=== PATIENT | female | born 1970 | race Hispanic/Latino ===

== ENCOUNTER 2021-07-15 13:57 | Emergency (ER) | payer BC ==
[~2021-07-15] VITALS: Ht 154.9 cm; Wt 76.7 kg
[~2021-07-15 13:57] MED LIST: LEVOTHYROXINE75 MCG PO
[2021-07-15] MEDS ORDERED: ONDANSETRON HCL INJ 2MG/ML 2ML 2 MG/ML VIAL IV STA (15:49)
[2021-07-15] MEDS ORDERED: FAMOTIDINE 20 MG/2 ML VIAL IV STA (15:49)
[2021-07-15] MEDS ORDERED: SODIUM CHLORIDE 0.9% 1000ML 1,000 ML IV SCH (16:00)
[2021-07-15] MEDS ORDERED: SODIUM CHLORIDE 0.9% 1000ML 1,000 ML ONE (16:06)
[2021-07-15] MEDS ORDERED: ONDANSETRON HCL INJ 2MG/ML 2ML 2 MG/ML VIAL ONE (16:06)
[2021-07-15] MEDS ORDERED: FAMOTIDINE 20 MG/2 ML VIAL IV ONE (16:07)
[2021-07-15] MEDS ORDERED: ZOFRAN4 MG PO (17:42)
== END 2021-07-15 17:54 | disposition home or self-care (01) ==
LOC: FSED 14:26
DX: B34.9 Viral infection, unspecified (principal); R11.2 Nausea with vomiting, unspecified; R05 Cough; E86.0 Dehydration; R51.9 Headache, unspecified; R53.83 Other fatigue; R91.8 Other nonspecific abnormal finding of lung field; E03.9 Hypothyroidism, unspecified; N63.20 Unspecified lump in the left breast, unspecified quadrant; Z20.822 Contact with and (suspected) exposure to COVID-19; Z79.899 Other long term (current) drug therapy
CPT/HCPCS: 71046; 80053; 81003; 85025; 96374; 99284; J2405; J7030